=== PATIENT | female | born 1950 | race Caucasian/White ===

== ENCOUNTER 2022-06-07 12:56 | Outpatient (REF) | payer MEDICARE, SELFPAY ==
--- NOTE | ~2022-06-07 | XR_ITS ---
EXAMINATION: LEFT KNEE AND LEFT ANKLE CLINICAL INFORMATION: Ankle sprain. Knee contusion. COMPARISON: None TECHNIQUE: Three-view left ankle and 4 view left knee FINDINGS: There is a large amount of soft tissue swelling seen overlying the patella and patellar tendon anteriorly and medially. No acute fracture or dislocation is evident. No knee effusion is seen. There is mild spurring undersurface of the patella at the patellofemoral joint. There is no evidence of acute fracture or dislocation of the left ankle. Left ankle mortise appears intact. No significant soft tissue swelling is evident. XR/XR ankle LT min 3V IMPRESSION: No significant bony abnormality of the left knee or ankle. Large amount soft tissue swelling seen about the anterior medial aspect of the knee.
--- NOTE | ~2022-06-07 | XR_ITS ---
EXAMINATION: LEFT KNEE AND LEFT ANKLE CLINICAL INFORMATION: Ankle sprain. Knee contusion. COMPARISON: None TECHNIQUE: Three-view left ankle and 4 view left knee FINDINGS: There is a large amount of soft tissue swelling seen overlying the patella and patellar tendon anteriorly and medially. No acute fracture or dislocation is evident. No knee effusion is seen. There is mild spurring undersurface of the patella at the patellofemoral joint. There is no evidence of acute fracture or dislocation of the left ankle. Left ankle mortise appears intact. No significant soft tissue swelling is evident. XR/XR knee LT 3V IMPRESSION: No significant bony abnormality of the left knee or ankle. Large amount soft tissue swelling seen about the anterior medial aspect of the knee.
== END 2022-06-07 12:57 | disposition home or self-care (01) ==
LOC: HO.HMGCX 12:56
PROVIDERS: Visit Provider Internal Medicine
DX: S80.02XA Contusion of left knee, initial encounter (principal); S90.02XA Contusion of left ankle, initial encounter; S93.402A Sprain of unspecified ligament of left ankle, initial encounter
CPT/HCPCS: 73562; 73610

== ENCOUNTER → 2022-06-19 11:28 | Outpatient (BNVA) | payer MEDICARE, SELFPAY | PROVIDERS: PCP Internal Medicine; Visit Provider Psychiatry & Neurology Neurology | DX: R26.9 Unspecified abnormalities of gait and mobility (principal); R29.6 Repeated falls; G47.10 Hypersomnia, unspecified | CPT/HCPCS: 99202 ==

== ENCOUNTER 2022-07-04 10:51 | Outpatient (REF) | payer MEDICARE, SELFPAY ==
--- NOTE | ~2022-07-04 | MR_ITS ---
EXAMINATION: MR BRAIN WITHOUT CONTRAST MR CERVICAL SPINE WITHOUT CONTRAST CLINICAL INFORMATION: 71-year-old with unspecified abnormalities of gait and mobility. COMPARISON: 07/22/2020 outside MRI MR BRAIN TECHNIQUE: Routine multiplanar, multisequence MR imaging of the brain was performed without IV contrast. FINDINGS: Brain Volume: Mild generalized diffuse supratentorial parenchymal volume loss, with a biparietal predominance within the limitations of qualitative assessment. There is also [id number] generalized diffuse cerebellar volume loss. Structural: There is a megacisterna magna in the posterior fossa, which is an anatomic variant. Brain and Meninges: Note is made of a 1 cm focus of cavitation in the right dorsal yunier, consistent with a remote infarct. DWI sequence demonstrates no restricted diffusion to suggest acute or subacute cerebral ischemia. There is a relatively confluent region of FLAIR/T2 signal hyperintensity within the right anterior frontal lobe white matter which extends into the capsular structures at the level of the basal ganglia and appears to be associated with a prominent vessel which drains into the region of the septum pellucidum. Prominent anterior cerebral artery branches are seen in this region. Uncertain whether these findings could be related to the presence of an arteriovenous malformation, possibly with some associated chronic ischemic changes in the adjacent brain parenchyma. A few tiny foci of susceptibility-weighted artifact are seen within this region on the gradient-echo pulse sequence suggesting tiny zones of either hemosiderin staining or dystrophic calcification. These findings are stable when compared to the prior study. Remainder of the brain is normal in signal intensity and morphology. No extra-axial fluid collections, significant space-occupying process or mass effect are identified. Ventricles and Subarachnoid Spaces: The ventricular system and subarachnoid spaces are approximately proportional to the degree of parenchymal volume loss, without hydrocephalus. Orbital Structures: Bilateral lens extractions are noted. Otherwise, the visualized orbital structures are grossly unremarkable within the limitations of the study. Vascular: Signal voids are noted in the visualized major intracranial vessels. Osseous Structures, Sinuses/Mastoids, Extracranial Soft Tissues: There are degenerative changes at the right TMJ, stable in appearance. Otherwise unremarkable. MR/MR cervical spine wo con IMPRESSION: 1. 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 These findings are stable when compared to the previous study. See above for details. Recommend correlation with any prior CT angiograms. If there are no prior angiographic studies, CT angiogram would be recommended. 2. No acute intracranial process. Chronic right pontine infarct appears to correspond to a previously noted zone of ischemia. MR CERVICAL TECHNIQUE: Multiplanar multisequence MR imaging of the cervical spine was done without IV contrast. FINDINGS: Alignment: Trace anterolisthesis at C4-C5 and C5-C6, stable at C5-C6 and new at C4-C5. 2 mm of anterolisthesis at C7-T1, stable in appearance and trace anterolisthesis at T1-T2 and T2-T3, unchanged in appearance. Craniocervical Junction/C1-C2 Articulations: Intact and aligned. Visualized Intracranial Structures: See above. Vertebral Bodies: Stable vertebral body heights. No interval compression fractures. Disc Spaces and Endplates: Severe disc space height loss at C6-C7 with Schmorl's nodes, disc desiccation and spondylosis, stable in appearance. [id number]-[id number] disc space height loss, Schmorl's nodes, disc desiccation and mild spondylosis at C5-C6 is stable. Mild disc space height loss and disc desiccation at C3-C4 and C4-C5, stable in appearance. Bone Marrow: No significant marrow-replacing process or bone marrow edema. Type II degenerative marrow signal changes along the endplates at C5-C6 and C6-C7 with type II marrow signal changes along the superior endplate of T1, stable in appearance. 4 mm focus of low T1/high T2 signal within the T1 vertebral body is stable and is nonspecific but likely a benign finding. C2-C3: Minimal disc osteophyte complex noted with mild ligamentum flavum thickening, stable in appearance without canal stenosis or cord impingement. Mild facet arthropathy bilaterally, unchanged without significant neural foraminal stenosis. C3-C4: Posterior disc osteophyte complex noted with slight flattening of the ventral dural sac, stable in appearance. Mild ligamentum flavum thickening, unchanged without canal stenosis or cord impingement. There is [id number] facet arthropathy, right more than left, with mild uncinate process spurring on the right, with moderate right-sided and mild left-sided neural foraminal stenosis, stable in appearance. C4-C5: Trace anterolisthesis noted on current study with minor posterior disc osteophyte complex with slight flattening of the ventral dural sac without cord impingement or canal stenosis. There is facet arthropathy, right more than left, with uncinate process spurring on the right, with mild right-sided neural foraminal stenosis, stable in appearance. C5-C6: Mild anterolisthesis, stable in appearance, with broad-based posterior disc osteophyte complex and flattening of the ventral dural sac without cord impingement, stable in appearance. No significant spinal canal stenosis. Uncovertebral arthrosis, left more than right, stable in appearance and mild right-sided facet arthropathy, unchanged. Moderate left-sided neural foraminal stenosis is stable. C6-C7: Broad-based disc osteophyte complex, stable in appearance, with mild flattening of the ventral dural sac without cord impingement or canal stenosis. Mild facet arthropathy on the left noted with uncovertebral spurring, left more than right, with moderate left-sided neural foraminal stenosis, stable in appearance. C7-T1: Slight unroofing of the posterior disc margin, stable in appearance, with ligamentum flavum thickening without canal stenosis, unchanged. Moderate left-sided facet arthropathy is stable without significant neural foraminal stenosis. There is facet arthropathy on the right at T3-T4 and T4-T5, stable in appearance, with [id number] right-sided neural foraminal stenosis at T4-T5 possibly encroaching on the exiting right T4 nerve root. Spinal Cord: The cervical and visualized upper thoracic spinal cord is normal in signal intensity throughout, without focal lesion, edema or syrinx. Slight spinal cord volume loss suspected on the left at the C5-C6, stable in appearance. Extracranial Soft Tissues: The visualized extracranial head/neck soft tissues are unremarkable within the limitations of the study. IMPRESSION: 1. Multilevel DDD and spondylosis largely similar to the previous exam with multilevel posterior disc osteophyte complexes without cord impingement or significant spinal canal stenosis largely unchanged. Multilevel subluxations are again noted with slight anterolisthesis at C4-C5 which has developed since the previous exam but otherwise stable. 2. Multilevel DJD as discussed above with multilevel bilateral neural foraminal stenosis largely stable in appearance. 3. Normal spinal cord signal noted, with slight chronic left-sided spinal cord volume loss at C5-C6.
== END 2022-07-04 10:52 | disposition home or self-care (01) ==
LOC: HO.MRI 10:51
PROVIDERS: Visit Provider Nurse Practitioner Family
DX: R26.9 Unspecified abnormalities of gait and mobility (principal)
CPT/HCPCS: 70551; 72141

== ENCOUNTER → 2022-08-15 10:16 | Outpatient (BNVA) | payer MEDICARE, SELFPAY | PROVIDERS: PCP Internal Medicine; Visit Provider Psychiatry & Neurology Neurology | DX: R26.9 Unspecified abnormalities of gait and mobility (principal); R29.6 Repeated falls; G47.10 Hypersomnia, unspecified | CPT/HCPCS: 99212 ==